=== PATIENT | female | born 2000 | race Caucasian/White ===

== ENCOUNTER → 2019-03-17 | Outpatient (CLI) | payer BC, SELFPAY ==
[2019-03-17 19:41] LABS: Chlamydia Trachomatis by PCR Negative (Negative); Neisserai gonorrhoeae by PCR Negative (Negative); Probe Check PASS; Sample Adequacy Control PASS; Specimen Processing Control PASS
== END | disposition home or self-care (01) ==
LOC: LABSPEC 16:08
PROVIDERS: Visit Provider Obstetrics & Gynecology
DX: Z11.3 Encounter for screening for infections with a predominantly sexual mode of transmission (principal)
CPT/HCPCS: 87491; 87591

== ENCOUNTER 2024-08-07 09:55 | Inpatient (IN) | payer OTHER, SELFPAY ==
[2024-08-07] VITALS (19 sets, daily range): BP systolic 112–122; BP diastolic 63–82; PULSE 60–109; RESP 16–18; TEMP 36.2–36.9; O2SAT 98–99; BMI 32.1
[2024-08-07 10:26] LABS: Absolute Lymphocyte Count 2.08 X10^3/uL (0.83-4.51); Absolute Neutrophil Count 10.7 X10^3/uL (2.0-7.7); Basophil# 0.02 X10^3/uL; Basophil% 0.1 % (0-1); Eosinophil# 0.04 X10^3/uL; Eosinophils% 0.3 % (0-5); Hematocrit 35.4 % (37-47); Hemoglobin 11.1 g/dL (12.0-15.0); Lymphocyte # 2.08 X10^3/ul (0.83-4.51); Lymphocyte % 14.9 % (19-41); Mean Corp Hgb Conc 31.4 g/dL (32-36); Mean Corpuscular Hgb 26.1 pg (27.0-32.0); Mean Corpuscular Volume 83.1 fL (81-99); Mean Platelet Vol. 9.6 fl (6.2-12.0); Monocyte# 1.04 X10^3/uL; Monocyte% 7.4 % (0-10); NRBC Flagged by Analyzer 0 % (0-5); Neutrophil # 10.68 X10^3/uL (2.7-7.7); Neutrophil % 76.4 % (47-70); POSITIVE MORPHOLOGY YES; Platelet Count 207 K/mm3 (150-450); RBC Distribution Width CV 22.7 % (11.6-14.6); RBC Distribution Width SD 66.4 fl (35.1-43.9); Red Blood Count 4.26 M/mm3 (4.2-5.4)
[2024-08-07 10:32] LABS: Differential Indicated SCAN CRITERIA MET
[2024-08-07] MEDS: Oxytocin 10 UNITS/ML Vial IM (10:36)
[2024-08-07] MEDS: Oxytocin 15 Units/NS 250ml 15 UNITS/250 ML IV.SOLN 83 UNITS IV (10:40)
--- NOTE | 2024-08-07 10:54 | PCM.HP.OB ---
HPI - General General Date of Admission: 08/07/24 HPI Narrative YVONNE JULIO, is a 24 F who presents in spontaneous, active labor. NST FHR Rate Baby A Variability:: Moderate Accelerations:: 15 x 15 Decelerations:: None NST Reactive:: Yes FHR Category:: Category I FHR Rate Baby B Uterine Activity:: 1-2 minutes, palpate firm ROS Eyes Eyes: Denies blurry vision, change in vision or spots in vision ENT HEENT: Denies dizziness or headache(s) Cardiovascular Cardiovascular: Denies abdominal pain, chest pain or dyspnea Respiratory/Chest Respiratory/Chest: Denies cough, dyspnea, shortness of breath at rest or shortness of breath with exertion Gastrointestinal Gastrointestinal: Denies abdominal pain, diarrhea or vomiting Genitourinary Genitourinary: Denies change in urinary stream, difficulty urinating or dysuria Musculoskeletal Musculoskeletal: Reports none Integumentary Integumentary: Denies rash Neurologic Neurologic: Denies dizziness, headache(s), memory loss or weakness Psychiatric Psychiatric: Reports none Vital Signs Vital Signs Vital Signs: 08/07/24 09:52 08/07/24 10:01 Temperature 97.2 F L Respiratory Rate 16 Physical Exam Const alert, oriented x3 and no apparent distress General Appearance: cooperative Orientation / Consciousness: awake Exam Limitations: no limitations HEENT normocephalic Head and Scalp: normal to inspection Eyes General Eye: normal appearance of both eyes Neck full ROM and no lymphadenopathy Lymph Lymphatic: no lymphadenopathy noted Chest inspection of chest normal Resp normal respiratory effort, normal air movement and clear to auscultation bilaterally Effort and Inspection: able to speak in complete sentences and symmetric chest movement Cardio regular rate and regular rhythm GI normal to inspection, nondistended, normoactive bowel sounds Manual OB Exam: presentation cephalic Back/Spine normal ROM Extremity full ROM and no calf tenderness Skin no rashes or lesions noted General Skin Exam: no breakdown Neuro oriented x3 and CN's II-XII intact bilaterally Psych mental status grossly normal and thought process normal Labs Labs Labs: Blood Type Pending Antibody Screen Pending Hct 35.4 % (37-47) L Hgb 11.1 g/dL (12.0-15.0) L Syphilis Total Ab Pending Assessment & Plan (1) 39 weeks gestation of : (2) Spontaneous onset of labor: (3) Active labor at term: (4) Anxiety and depression: (5) Positive GBS test: PLAN: Plan Patient arrived to unit 8 cm with bulging bag Admit to labor and delivery GBS positive- untreated Anticipate imminent delivery Dr. Myles on unit and aware of admission
--- NOTE | 2024-08-07 10:58 | OB.VAGDELI_ITS ---
Assessment & Plan (1) (spontaneous vaginal delivery): (2) Precipitous delivery: (3) Positive GBS test: (4) Care and examination of lactating mother: (5) Meconium in amniotic fluid: Maternal Data Information MICHAEL Calculator Estimated Delivery Date Method Current WG Current Estimate 08/10/24 Manual 39w 4d Vaginal Delivery Maternal Presentation Maternal Presentation: Active Labor Maternal Presentation: at 39.4 weeks gestation that presents in spontaneous, active labor. Vaginal Delivery Information Procedure Performed: Spontaneous Vaginal Delivery Pre-Procedure Diagnosis: Term gestation, spontaneous onset of labor Post-Procedure Diagnosis: , Precipitous delivery, Live female Type of anesthesia: None Estimated Blood Loss: 350 Time of Delivery: 10:32 Findings Description of procedure: Patient arrived to unit and was found to be 8cm dilated with bulging bag of flu id. Involuntarily bearing down and wanting to push. AROM for moderate amount of meconium stained fluid. She quickly progressed to complete dilation. Canine Enforcement Officer and RT to room for delivery. With good maternal effort, head delivered followed by posterior shoulder and remainder of infant body without any force, delay, or traction. Vigorous female was delivered atraumatically and placed on maternal abdomen. Pitocin IM given in right leg and Pitocin IV started for active management of the third stage of labor. 3 vessel cord clamped and cut after delay and infant placed immediately skin to skin with patient. Straight catheter placed and bladder emptied for 150-200 cc clear urine. Placenta delivered spontaneously and intact. After inspection, vagina and perineum are intact. Vaginal sweep performed. Fundus is firm 2 below U and bleeding is hemostatic. Sponge and sharps counts correct. Patient and infant bonding well at this time. Dr. Myles notified of delivery. Routine post orders placed. Presentation: Vertex Amniotic Membrane Rupture Type: Artificial Amniotic Fluid Description: Lightly stained meconium Placental Delivery Description: Spontaneous Placenta Disposition: [facility] Specimen collected: No Cord Vessel Description: 3 Vessels Cord Entanglement: None Nuchal Cord Compression: Without compression Infant A Gender: Female (1 minute): 8 (5 minute): 9 Delayed Cord Clamping: Yes Db2 Developer landscape management technician: No Post Vaginal Deli Medications given after delivery: IV Pitocin and IM Pitocin Episiotomy Description: None Laceration: None Complication Complications: No
[2024-08-07 11:04] LABS: Syphilis Antibodies Nonreactive (Nonreactive)
[2024-08-07 11:26] LABS: Macrocytosis 1+; Polychromasia 1+
[2024-08-07 11:27] LABS: Anisocytosis 2+; Platelet Estimate A (ADEQ)
[2024-08-07] MEDS: Benzocaine/Lanolin/Aloe Vera 85 GM Spray 1 SPRAY TOPICAL (12:44)
[2024-08-07] MEDS: Senna/Docusate Sodium 1 Tablet PO (16:41)
[2024-08-07] MEDS: Sertraline 50 MG Tablet PO (22:22)
[2024-08-07] MEDS: Naproxen 500 MG Tablet PO (22:25)
[2024-08-08] VITALS (8 sets, daily range): BP systolic 116–124; BP diastolic 64–75; PULSE 75–93; RESP 16–17; TEMP 36.5–36.9; O2SAT 97–98
[2024-08-08] MEDS: Acetaminophen 500 MG Tablet 1000 MG PO (02:38)
--- NOTE | 2024-08-08 08:04 | DS.PCM_ITS ---
Providers Date of Admission: 08/07/24 Primary Care Physician: SOCORRO Haile Reason For Visit: LABOR AND DELIVERY Diagnosis Discharge Diagnosis (1) (spontaneous vaginal delivery): Status: Acute Code(s): O80 - Encounter for full-term uncomplicated delivery (2) Precipitous delivery: Status: Acute Code(s): O62.3 - Precipitate labor (3) Positive GBS test: Status: Acute Code(s): B95.1 - Streptococcus, group B, as the cause of diseases classified elsewhere (4) Care and examination of lactating mother: Status: Acute Code(s): Z39.1 - Encounter for care and examination of lactating mother (5) Meconium in amniotic fluid: Status: Acute Code(s): P96.83 - Meconium staining Plan PPD 1 Routine care support GBS + untreated- Desires d/c home with follow up in office Medications at Discharge Home Medications vit no.37-iron fum 29 mg iron-folic acid 1 mg chewable tablet (PreNata) tab PO 08/07/24 sertraline 50 mg tablet 50 mg PO DAILY anxiety 08/07/24 acetaminophen 500 mg tablet 1,000 mg (2 x 500 mg) PO Q6H PRN PRN Pain 1-10 Or Fever #0 tabs 08/08/24 naproxen 500 mg tablet 500 mg PO Q8H PRN PRN Pain Score 1-10 #0 tabs 08/08/24 Hospital Course Operations None Procedures None Summary of Care Provided Minutes Spent on Discharge: 15 Hospital Course: Patient had vaginal delivery. Hospital course was uneventful. Physical Exam Narrative Patient seen at bedside. Denies pain. Ambulating and voiding without difficulty. Lochia decreased. Desires discharge home today. Const alert and oriented x3 General Appearance: Negative for in distress HEENT normocephalic Eyes General Eye: normal appearance of both eyes Neck General: normal visual inspection Chest Chest: symmetrical chest wall rise Resp normal respiratory effort and normal air movement Effort and Inspection: symmetric chest movement; Negative for tachypneic Auscultation: clear to auscultation bilaterally Cardio regular rate and regular rhythm Peripheral Pulses: pulses 2+ throughout GI normal to inspection, nondistended, normoactive bowel sounds Narrative: Ice to perineum OB / External & Speculum: vaginal bleeding and other Lochia decreasing Uterus Palpation: uterus fundus firm (Below U) Extremity normal to inspection, full ROM and normal capillary refill Skin no rashes or lesions noted Neuro oriented x3, CN's II-XII intact bilaterally and gait normal Psych mental status grossly normal, thought process normal and activity/motor behavior normal Weight / BMI Weight Weight: 218 lb Body Mass Index (BMI) 32.1 ABG / Lab / Microbiology Data 08/07/24 10:00 Laboratory: Laboratory Results - last 24 hr 08/07/24 10:00: WBC 14.0 H, RBC 4.26, Hgb 11.1 L, Hct 35.4 L, MCV 83.1, MCH 26.1 L, MCHC 31.4 L, RDW Std Deviation 66.4 H, RDW Coeff of Judi 22.7 H, Plt Count 207, MPV 9.6, Immature Gran % (Auto) 0.900, Neut % (Auto) 76.4 H, Lymph % (Auto) 14.9 L, [place] % (Auto) 7.4, Eos % (Auto) 0.3, Baso % (Auto) 0.1, Absolute Neuts (auto) 10.7 H, Absolute Lymphs (auto) 2.08, Nucleated RBC % 0, Platelet Estimate A, Polychromasia 1+, Anisocytosis 2+, Macrocytosis 1+, Syphilis Total Ab Nonreactive, Blood Type A POSITIVE, Antibody Screen NEGATIVE D/C Instructions Discharge Diet: No restrictions Discharge Activity: Return to Normal Activity, No Restrictions, May Drive, May Shower and May Take a Tub Bath (Warm water only. No bath salts, soaps, bubbles) May resume sexual activity in: 6-8 weeks Weight Bearing Status: Weight bearing as tolerated Call your doctor if you observe: Fever of 101 or Higher, Inability to urinate, Using more than 1 pad per hour, Shortness of breath, Dizziness, Chest pain, Calf discomfort and Uncontrolled pain DC O2, CPAP, BIPAP Needs Home O2 Discharge instructions: No Please Follow Up With: [facility] Pedro CANNON When: 2 weeks in office or virtual Meaningful Use Info Meaningful Use Meaningful Use Diagnoses (Choose all that apply): None applicable Ischemic Stroke Statin Dosing Therapy Reference: STATIN DOSE THERAPY REFERENCE: * Patients > 75 years receive moderate or high dose statin therapy. * Patients 75 years or YOUNGER should receive HIGH intensity statin dose unless contraindicated. You will be required to document reason for non-treatment if statin daily dose does not meet guidelines. HIGH DOSE STATIN THERAPY DAILY Atorvastatin > than or = to 40 mg Rosuvastatin > than or = to 20 mg Amlodipine + Atorvastatin > than or = to 2.5/40 mg Ezetimibe + Simvastatin 10/80 mg Simvastatin 80mg Discharge Plan Admission Admit Date/Time: 08/07/24 09:55 Primary Reason for Your Visit: Labor and Delivery Attending Provider: Duyen Barreto Primary Care Provider: Timothy White Discharge Orders/Prescriptions Prescriptions: New acetaminophen 500 mg Tablet 1,000 mg PO Q6H PRN PRN (Reason: Pain 1-10 Or Fever) Qty: 0 0RF naproxen 500 mg Tablet 500 mg PO Q8H PRN PRN (Reason: Pain Score 1-10) Qty: 0 0RF Continued sertraline 50 mg tablet 50 mg PO DAILY PreNata 29 mg iron- 1 mg tablet,chewable PO Referrals / Follow Up: Timothy White PA [Primary Care Provider] - Disposition Disposition (needs filled in before D/C Order can be placed): Home, Self Care
--- NOTE | 2024-08-08 14:25 | CASEMGMT ---
Social Work Assessment Labor and Delivery Unit Patient Address: [address] [place] [address] Phone number: [phone] Date of Referral: 08/07/2024 Time of Referral: 15:00 Referred By: Duyen Barreto Date of Intervention: 08/08/2024 Time of Intervention: 14:24 Reason for Referral: Mental Health: Hx of anxiety and depression. History obtained from: Medical records, mother of baby (MOB) and father of baby (FOB).? Household composition: MOB, FOB (Mark), their 13 month old daughter Kathy and their daughter Qian, born on 08/07/2024. Patient's parent/guardian status: MOB and FOB have been together for 5 and a half years and for over 2 years. ???Both are actively involved and will be providing care for baby. MOB denied any concerns with domestic violence and described a positive and supportive relationship with the FOB. Medical History: ?MOB received PNC through [facility] beginning at 5 weeks and 6 days. Visits were observed to be routine. Apgars: 8 and 9. Weight: 9 pounds, 9 oz. Pedicab Driver: Dr. Ray at [facility]. Educational Status: MOB and FOB denied any issues or concerns with reading or writing. MOB earned her Bachelor?s degree in History and Political Science and the FOB earned his Master?s degree in Political Science. Financial Status: MOB and FOB reported their income is sufficient to meet the needs of their family at this time. MOB is currently a [id number] mom (SAHM) and the FOB is currently employed full-time in the area of [employer]. Infant Supplies: MOB and FOB reported they have all the supplies they need for baby at this time including but not limited to: Car seat, bassinet, pack-n-play, crib, diapers, bottles, breast pump and clothing. Childcare/Caregiver(s):? MOB identified herself as the primary caregiver as a [id number] mom however the FOB works remotely and will have the flexibility to also help out when needed as well. Transportation:? MOB and FOB reported they are both licensed drivers and have a reliable vehicle to take baby to and from all medical appointments. No transportation issues identified. Programs/Agencies Involved: MOB and FOB denied any current programs or agencies involved at this time. Children Services/Legal Issues:? Denied. Behavioral Health Issues: ??Mental Health History: MOB has a history of Anxiety, Depression and ADHD. MOB just started back on Zoloft on 08/07 ?just to stay ahead of things?. MOB reported all symptoms are being successfully managed at this time. MOB described more anxiety than depression and denied any current depression. FOB reported he struggled with depression for a while last year due to job dissatisfaction. FOB reported once he changed jobs, his depression subsided. FOB denied any current depression. ?Substance Use History:?? ?Denied. ??Family History: MOB reported her brother is close to being an alcoholic and the FOB reported there are family members on his mother?s side who are severe alcoholics. MOB reported her mother has struggled with depression and the FOB reported depression runs on both sides of his family. ???Drug Screens: ?None obtained at the time of this admission. Family/Social Stressors: ?MOB and FOB denied any current family or social stressors. Support Systems: Ample.? MOB identified her biggest supports as the FOB, ?s paternal grandmother (PGM), MOB?s [id number] and MOB?s parents. MOB also identified the FOB?s friends as a support. Depression/Shaken Baby/Safe Sleeping: grounds worker provided verbal and written education on PPD, Safe Sleeping and Shaken Baby.? Parents verbalized an understanding. ??? ASSESSMENT:? MOB and FOB provided consent to social work visit. Upon arrival, MOB was sitting upright in the hospital bed holding , and the FOB was sitting on a chair close-by. .Both MOB and FOB were verbally engaged and cooperative. Formulation Chemist observed positive interaction between the MOB and FOB as well as with the MOB and .? During the time the MOB was holding , she was observed to be very gentle and attentive to ?s needs.? was swaddled and MOB was able to adjust when started to cry. At the end of the assessment, both MOB and FOB agreed for adoption social worker to talk with the MOB alone.? MOB reported feeling safe in her home, denied any domestic violence, unmanaged mental health issues with either herself or the FOB and also denied any drug or alcohol abuse. No concerns were observed or identified. Safe Plan of Care for related to substance use: N/A; not needed. ? PLAN:? Baby to be discharged home when ready.? grounds worker also provided written information on depression, depression resources and Help Me Grow as additional resources offered by adoption social worker which MOB and FOB accepted. No other services requested or indicated. April Seals, CABLE RESPOOLER, ENFORCEMENT MANAGER
== END 2024-08-08 20:25 | disposition home or self-care (01) | DRG 806 ==
LOC: WPOUT 09:56 → WP 09:56
PROVIDERS: Admitting Provider Advanced Practice Midwife; PCP Physician Assistant; Referring Provider Advanced Practice Midwife; Visit Provider Advanced Practice Midwife
DX: O62.3 Precipitate labor (principal); Z37.0 Single live birth; O98.82 Other maternal infectious and parasitic diseases complicating childbirth; F32.A Depression, unspecified; F41.9 Anxiety disorder, unspecified; O99.344 Other mental disorders complicating childbirth; O77.0 Labor and delivery complicated by meconium in amniotic fluid; Z3A.39 39 weeks gestation of pregnancy; B95.1 Streptococcus, group B, as the cause of diseases classified elsewhere; N96 Recurrent pregnancy loss; O99.893 Other specified diseases and conditions complicating puerperium
CPT/HCPCS: 59050; 85025; 86780; 86850; 86900; 86901; 99221; G0378